=== PATIENT | female | born 1995 | race Caucasian/White ===

== ENCOUNTER → 2020-07-11 | Outpatient (CLI) | payer BC ==
--- NOTE | 2020-07-11 17:26 | CARD ---
MR#: [id number] Date of Study: 07/11/2020 Ordering Physician: NANCY CRUZ, Referring Physician: NANCY CRUZ, Tech: India Quintana [facility] APPROVED REPORT EXAM: Two-dimensional and M-mode echocardiogram with Doppler and color Doppler. Other Information Quality : Good INDICATION Chest Pain 2D DIMENSIONS RVDd2.1 (2.9-3.5cm)Left Atrium(2D)2.9 (1.6-4.0cm) IVSd0.8 (0.7-1.1cm)Aortic Root(2D)2.5 (2.0-3.7cm) LVDd3.9 (3.9-5.9cm)LVOT Diameter1.9 (1.8-2.4cm) PWd0.9 (0.7-1.1cm)LVDs2.0 (2.5-4.0cm) FS (%) 30.0 %SV54.6 ml LVEF(%)60.0 (>50%) Aortic Valve AoV Peak Roby.140.1cm/sAoV VTI31.4cm AO Peak GR.7.9mmHgLVOT Peak Roby.128.8cm/s LVOT VTI 27.50cmAO Mean GR.5mmHg RONNIE (VMAX)2.63br8IHD (VTI)2.48cm2 Mitral Valve MV E Yxiomwgm947.0cm/sMV DECEL ESJG524xb MV A Degbexxh90.8cm/sMV KVO88zc E/A Ratio2.6MVA (PHT)6.50cm2 TDI E/Lateral E'4.8E/Medial E'7.7 Tricuspid Valve TR P. Jsqpjsjo857bm/sRAP [id number] TR Peak Gr.05msWvHJIK25kuSh Pulmonary Vein S1 Nghcfmel43.6cm/sD2 Uxjrrrvf99.2cm/s LEFT VENTRICLE The left ventricle is normal size. There is normal left ventricular wall thickness. The left ventricu lar systolic function is normal and the ejection fraction is within normal range. The Ejection Fracti on is 55-60%. There is normal LV segmental wall motion. The left ventricular diastolic function and f illing is normal for age. There is no ventricular septal defect visualized. RIGHT VENTRICLE The right ventricle is normal size. The right ventricular systolic function is normal. ATRIA The left atrium size is normal. The right atrium size is normal. The interatrial septum is intact wit h no evidence for an atrial septal defect or patent foramen ovale as noted on 2-D or Doppler imaging. AORTIC VALVE The aortic valve is normal in structure and function. Doppler and Color Flow revealed no significant aortic regurgitation. There is no significant aortic valvular stenosis. MITRAL VALVE The mitral valve is normal in structure and function. There is no evidence of mitral valve prolapse. There is no mitral valve stenosis. Doppler and Color-flow revealed trace mitral regurgitation. TRICUSPID VALVE The tricuspid valve is normal in structure and function. Doppler and Color Flow revealed trace tricus pid regurgitation. The PA pressure was estimated at 27 mmHg. There is no tricuspid valve stenosis. PULMONIC VALVE The pulmonary valve is normal in structure and function. Doppler and Color Flow revealed trace pulmon ic valvular regurgitation. There is no pulmonic valvular stenosis. GREAT VESSELS The aortic root is normal in size. The ascending aorta is normal in size. The IVC is normal in size a nd collapses >50% with inspiration. PERICARDIAL EFFUSION There is no evidence of significant pericardial effusion. Critical Notification Critical Value: No <Conclusion> The left ventricular systolic function is normal and the ejection fraction is within normal range. Th e Ejection Fraction is 55-60%. There is normal LV segmental wall motion. Signed by : Nancy Cruz, Electronically Approved : 07/11/2020 17:25:58
== END ==
LOC: ECHO 12:45
PROVIDERS: ATTEND Internal Medicine Cardiovascular Disease
DX: R07.9 Chest pain, unspecified (principal)
CPT/HCPCS: 93306